=== PATIENT | male | born 1950 | race African-American/Black ===

== ENCOUNTER 2021-10-03 04:36 | Day surgery (SDC) | payer OTHER ==
[2021-09-26 15:47] VITALS: BMI 29.9
[2021-10-03 09:58] VITALS: TEMP 97.5
[2021-10-03 10:33] VITALS: BP 124/68; PULSE 52
== END 2021-10-03 10:55 | disposition home or self-care (01) ==
LOC: JASU-ENDO 04:36
PROVIDERS: ATTEND Internal Medicine Gastroenterology
PROC: 0DBN8ZX Excision of Sigmoid Colon, Via Natural or Artificial Opening Endoscopic, Diagnostic (ICD-10-PCS; 2021-10-03)
PROC: 0DBP8ZX Excision of Rectum, Via Natural or Artificial Opening Endoscopic, Diagnostic (ICD-10-PCS; principal; 2021-10-03 09:30)
DX: Z12.11 Encounter for screening for malignant neoplasm of colon (principal); K57.30 Diverticulosis of large intestine without perforation or abscess without bleeding; K64.8 Other hemorrhoids; D12.7 Benign neoplasm of rectosigmoid junction; D12.3 Benign neoplasm of transverse colon; Z86.010 Personal history of colon polyps